=== PATIENT | female | born 1960 | race Caucasian/White ===

== ENCOUNTER 2020-07-16 00:04 | Inpatient (IN) | payer MEDICAID, SELFPAY ==
[~2020-07-16] VITALS: Ht 157.5 cm; Wt 77.1 kg
[2020-07-16 00:27] VITALS: BP_SYST 121
--- NOTE | 2020-07-16 00:50 | NUR ---
Patient to ER bed 2 to gown for evaluation. Side rails up. Report given to SONJA Byers
--- NOTE | 2020-07-16 00:55 | NUR ---
Patient brought in by friends in wheelchair. Patient reports that she has fallen a couple times this week, complaining of lower back pain. Patient reports she has chronic back pain and nerve pain and sees a pain management MD that prescribes #110 of [employer]. Patient reports she was just discharged from [facility] ED for same issue. Also reports that she has low sodium and was only given "half a bag of fluid." Pain 9/10, lower back. No other complaints/injuries per patient or as noted. Will continue to monitor.
[2020-07-16 01:19] LABS: BILIRUBIN,URINE NEGATIVE (NEGATIVE); CLARITY/URINE CLEAR (CLEAR); COLOR,URINE YELLOW (YELLOW); GLUCOSE,URINE NEGATIVE (NEGATIVE); KETONES,URINE NEGATIVE (NEGATIVE); LEUKOCYTE ESTERASE ,URINE NEGATIVE (NEGATIVE); NITRITE, URINE NEGATIVE (NEGATIVE); PROTEIN URINE NEGATIVE (NEGATIVE); UROBILINOGEN,URINE 0.2 (0.2-1.0)
[2020-07-16 01:25] LABS: BLOOD, URINE TRACE (NEGATIVE)
[2020-07-16 01:26] LABS: WBC,URINE 0-3 /HPF (0-3)
[2020-07-16 01:27] LABS: BACTERIA,URINE FEW /HPF (None Seen)
[2020-07-16 01:29] LABS: BARBITURATE, URINE NEGATIVE (NEG <=200); BENZODIAZEPINE, URINE NEGATIVE (NEG <=150); CANNABINOID, URINE NEGATIVE (NEG <=50); COCAINE, URINE NEGATIVE (NEG <=150); METHAMPHETAMINES SCREEN,URINE NEGATIVE (NEG <=500); OPIATE, URINE POSITIVE (NEG <=100); PHENCYCLIDINE SCREEN,URINE NEGATIVE (NEG <=25); UR TRICYCLIC ANTIDEPRESSANTS NEGATIVE (NEG <=300); URINE AMPHETAMINE NEGATIVE (NEG <=500); URINE METHADONE NEGATIVE (NEG <=200); URINE OXYCODONE SCREEN NEGATIVE (NEG <=100); URINE PROPOXYPHENE SCREEN NEGATIVE (NEG <=300)
[2020-07-16 01:33] LABS: BASOPHILS % (AUTO) 0.2 % (0.0-2.0); EOSINOPHILS % (AUTO) 0.4 % (0.0-4.0); HEMATOCRIT 34.2 % (36-48); LYMPHOCYTES # (AUTO) 1.5 K/uL (1.0-5.5); LYMPHOCYTES % (AUTO) 30.6 % (20.5-51.5); MEAN CORPUSCULAR HEMOGLOBIN 33 pg (27-31); MEAN CORPUSCULAR HGB CONC 35 % (32-36); MEAN CORPUSCULAR VOLUME 93 fL (79.0-98.0); MONOCYTES # (AUTO) 0.3 K/uL (0.0-1.0); MONOCYTES % (AUTO) 6.9 % (1.7-9.3); NEUTROPHILS # (AUTO) 2.9 K/uL (1.8-7.7); NEUTROPHILS % (AUTO) 61.9 % (40.0-70.0); PLATELET COUNT (AUTO) 276 K/uL (130-430); RED CELL DISTRIBUTION WIDTH 11.8 % (9.0-15.0); WHITE BLOOD COUNT (AUTO) 4.8 K/uL (4.8-10.8)
--- NOTE | 2020-07-16 01:38 | NUR ---
ER Dr. Perla at bedside examining patient.
[2020-07-16 01:42] LABS: CALCIUM 8.8 mg/dL (8.4-11.0); CREATININE 0.59 mg/dL (0.55-1.30)
[2020-07-16] MEDS ORDERED: KETOROLAC TROMETHAMINE 30 MG VIAL IM ONE (01:45)
[2020-07-16 01:47] LABS: ALBUMIN 3.8 g/dL (3.4-4.8); TOTAL BILIRUBIN 0.4 mg/dL (0.0-1.0)
[2020-07-16] MEDS ORDERED: NACL 0.9% 1,000 ML IV ONE (02:00)
--- NOTE | 2020-07-16 03:32 | NUR ---
pt was able to ambulate to restroom and back to bed with steady gait but with assistance. Pt resting comfortably in bed. No acute distress, will continue to monitor.
--- NOTE | 2020-07-16 03:45 | NUR ---
Repeat serum sodium drawn. Pt tolerated well. Specimen sent to lab.
[2020-07-16] MEDS ORDERED: OMEP20CA15 PO (04:43)
[2020-07-16] MEDS ORDERED: CARV3.1246 PO (04:43)
[2020-07-16] MEDS ORDERED: AMLO2.5T2 PO (04:43)
[2020-07-16] MEDS ORDERED: NEU100 PO (04:43)
--- NOTE | 2020-07-16 04:45 | NUR ---
Patient unable to remember medication list. Per patient, nephew will bring medication list in the morning.
--- NOTE | 2020-07-16 05:54 | NUR ---
patient resting comfortably in bed. No acute distress, will continue to monitor.
[2020-07-16] MEDS ORDERED: KETOROLAC TROMETHAMINE 30 MG VIAL IVP ONE (07:00)
--- NOTE | 2020-07-16 07:24 | NUR ---
Report given to SONJA Daniel. All care endorsed.
--- NOTE | 2020-07-16 07:33 | NUR ---
Admit orders received from Dr. Vines. Pt will go to Med-surg. Called for bed, charge nurse is in report and will call us back.
--- NOTE | 2020-07-16 08:27 | NUR ---
Belongings list completed, pt unable to remember medications, nephew will bring the list this afternoon.
--- NOTE | 2020-07-16 08:30 | NUR ---
Patient will be admitted to care of Dr. Vines. Admitted to med-surg unit. Will go to room 108A. Belongings list completed. Complete and up to date summary report printed. SBAR report to be given at bedside with opportunity for questions.
--- NOTE | 2020-07-16 08:46 | NUR ---
CONSULTATION PAGED REASON FOR CONSULTATION:HYPONATREMIA WAS CONSULT CALLED?Y PERSON WHO WAS NOTIFIED:[facility] CONSULTING PHYSICIAN:MARCO ANTONIO PRUITT [employer]ER SPECIALTY:NEPHROLOGY [employer] PHONE NUMBER:[phone] REQUESTING PHYSICIAN:DARIO FERNANDES
--- NOTE | 2020-07-16 08:50 | NUR ---
ADMISSION NOTE Received patient from ER via gurney. Patient admitted with diagnosis of Hyponatremia. Patient is awake, alert, oriented X 4. Patient oriented to hospital room, call light, toileting, pain management and safety-teach back done. Patient informed thatStaci will be her nurse and that their room number is 108-A. Personal belongings checked and Belongings List documented. Call light within reach.
[2020-07-16 09:00] VITALS: BP_SYST 124
--- NOTE | 2020-07-16 09:15 | NUR ---
Hand In: Endorsed to primary care nurse Staci,patient in room 108-A in stable condition.
--- NOTE | 2020-07-16 10:02 | NUR ---
Opening Notes Patient is awake, alert and oriented x4. No resp distress noted. Breathing is even and unlabored at this time. Patient is c/o gen body pain, 06/22. Per patient, "My pain is due to my neuropathy, usually in my lower legs." IV site on right AC, 20 gauge intact at this time. NS @ 100 cc/hr, infusing well at this time. Patient is ambulatory and is able to self turn in bed. Patient was oriented to the room. Nurse educated pt on proper use of the call light and to ask for help when needed. Pt was successful in return demonstration of call light. All needs met at this time. Safety and fall precautions in place. Bed in lowest position, locked. Will continue to monitor.
[2020-07-16] MEDS: NACL 0.9% 1,000 ML IV SCH ×2 (10:19→19:30)
[2020-07-16] MEDS: MORPHINE 2 MG/ML INJ. SYRINGE IVP PRN ×3 (10:41→20:50)
--- NOTE | 2020-07-16 10:45 | NUR ---
Morphine 1 mg IVP Patient is c/o 9/10 pain level, on lower legs and gen body. Administered Morphine 1 mg IVP, tolerated well. Will continue to monitor.
[2020-07-16 12:00] VITALS: BP_SYST 125
--- NOTE | 2020-07-16 12:20 | NUR ---
Notes Patient is laying in bed, resting at this time and talking on her phone. No resp distress noted. Breathing is even and unlabored. Denies any pain at this time. Will continue to monitor.
--- NOTE | 2020-07-16 14:25 | NUR ---
Notes Patient is sleeping in bed at this time. No resp distress noted. Breathing is even and unlabored. No pain at this time. Will continue to monitor.
--- NOTE | 2020-07-16 15:40 | NUR ---
Morphine 2 mg IVP Patient is c/o gen body pain, requesting pain medication. Administered Morphine 2 mg IVP, tolerated well. Will continue to monitor.
[2020-07-16 16:00] VITALS: BP_SYST 128
[2020-07-16] MEDS ORDERED: NALOXONE HCL 0.4 MG/ML AMP (NARCAN) IVP PRN ×2 (16:30→17:15)
[2020-07-16] MEDS ORDERED: HYDROcodone/ACETAMIN 10-325 MG TAB PO PRN ×2 (16:30→17:15)
--- NOTE | 2020-07-16 16:30 | NUR ---
IV SITE OUT IV site on right AC, 20 gauge came out, swelling noted on lower forearm, pt educated to elevate arm. Attempted to restart IV access x3, unsuccessful. Obtained new orders from Dr. Martínez for midline placement. Will continue to monitor.
--- NOTE | 2020-07-16 18:55 | NUR ---
Closing Notes/WAITING FOR MIDLINE PLACEMENT Patient is awake, alert and oriented x4. No resp distress noted. Breathing is even and unlabored. Pt denies any pain at this time. IV SITE not available at this time. Some swelling noted on right upper arm. Pt was educated to elevate the extremity. Pt is ambulatory, steady gait. Patient denies any NVD, cough or abnormal bleeding. No needs at this time. Safety and fall precautions in place. Bed in lowest position, locked. Will continue to monitor.
[2020-07-16 19:00] VITALS: BP_SYST 127
--- NOTE | 2020-07-16 19:15 | NUR ---
change of shift.pt.presents quiescent affect;calm,resting.pt.had submitted to the placement of a mid-line:07/16/20. picc line nsg had placed the mid-line;location;lt.bicept.intact;patent.i have re-connected the iv fluids.pt.presents general status stable.respiratory status stable;unlabored@room air.pt.capable to reposition self/ambulate.i am to f/u and collect a urine sample;na+,omol,uric acrid.call light/telephone w/in access of the pt.
[2020-07-16 20:00] VITALS: BP_SYST 127
--- NOTE | 2020-07-16 20:00 | NUR ---
pt.assessed.v/s assessed values w/in normal limits.no c/o pain,nausea.mid-line intact;patent iv fluids infusing.i have apprised the pt.that snacks/beverages are available w/in the shift.pt.had requested coffee/jellos.i have provided the food items.i have re-iterated to the pt.that i am to collect a urine sample.i have presented the hat;explanation provided re;hat.placed w/in the toilet.general status stable.respiratory status stable;unlabored.call light/telephone w/in access of the pt.
[2020-07-16] MEDS: FAMOTIDINE 20 MG TABLET PO SCH (20:47)
[2020-07-16] MEDS: SODIUM CHLORIDE 500 MG TABLET PO SCH (20:47)
--- NOTE | 2020-07-16 21:00 | NUR ---
2100pmedications administered.pt.capable to ingest the po medications w/out difficulty.pt.had requested medication; pain.i have administered morphine;2mg ivp.to assess the efficacy of the pain medication per pain mgx protocol.
--- NOTE | 2020-07-16 22:00 | NUR ---
pt.assessed.pt.presents quiescent affect;calm,restimg.no c/o pain,nausea.no requests posited@this hour.mid-line intact;patent iv fluids infusing.general status stable.respiratory status stable;unlabored.pt.capable to repiosition self.call light/telephone w/in reach of the pt.
--- NOTE | 2020-07-16 22:30 | NUR ---
i have collected the urine sample;na+.osmo,uric acid.taken to the lab.
[2020-07-17] VITALS: BP_SYST 125
--- NOTE | 2020-07-17 | NUR ---
pt.assessed.v/s assessed values w/in normal limits.no c/o pain,nausea.pt.had requested snacks/juice.i have provided the food items.mid line intact;patent iv fluids infusing.pt.capable to reposition self.general status stable.respiratory status stable.unlabored.call light/telephone w/in access of the pt.
[2020-07-17] MEDS: MORPHINE 2 MG/ML INJ. SYRINGE IVP PRN ×3 (01:30→10:14)
--- NOTE | 2020-07-17 01:30 | NUR ---
pt.assessed.pt.requested medication;pain.i have administered morphine:2mg ivp.to assess the efficacy of the pain medication per pain mgx protocol.no additional requests posited@this.
--- NOTE | 2020-07-17 02:00 | NUR ---
pt.assessed.pt.presents quiescent affect;calm,somnolent.per flacc pain mgx pt.absent facial grimaces/body posturing mid-line intact;patent iv fluids infusing.pt.capable to reposition self.call light.telephone w/in access of the pt.
--- NOTE | 2020-07-17 04:00 | NUR ---
pt.assessed.pt.present quiescent affect;calm,somnolent.per flacc pain mgx pt.absent facial grimaces/body posturing.mid-line intact;patent iv fluids infusing.general status stable.respiratory status stable;unlabored.pt.capable to reposition self.call light/ telephone placed w/in reach of the pt.
[2020-07-17] MEDS: NACL 0.9% 1,000 ML IV SCH (05:21)
--- NOTE | 2020-07-17 06:30 | NUR ---
pt.assessed.pt.had requested medication;pain.i administered morphine;2mg ivp.to assess the efficacy of the pain medication per pain mgx protocol.mid-line intact;patent iv fluids infusing.pt.had requested coffee i provided the coffee.pt.capable to reposition self/ambulate. general status stable;respiratory status stable;unlabored.call light/telephone placed w/in access of the pt.
--- NOTE | 2020-07-17 07:15 | NUR ---
opening note received bedside sbar from night rn, patient in bed, respirations even, non labored, bed in low and locked position, call light within reach, ivf's running as directed
[2020-07-17 08:00] VITALS: BP_SYST 152
--- NOTE | 2020-07-17 08:00 | NUR ---
nurse note obtained vs, patient complaining of pain, repositioned patient, bed in low and locked position, call light within reach
[2020-07-17 08:23] LABS: RED CELL DISTRIBUTION WIDTH 12.1 % (9.0-15.0)
[2020-07-17 08:24] LABS: BASOPHILS % (AUTO) 0.7 % (0.0-2.0); HEMATOCRIT 34.8 % (36-48); HEMOGLOBIN 11.8 g/dL (12.0-16.0); LYMPHOCYTES # (AUTO) 1.6 K/uL (1.0-5.5); MEAN CORPUSCULAR HEMOGLOBIN 32 pg (27-31); MEAN CORPUSCULAR HGB CONC 34 % (32-36); MEAN CORPUSCULAR VOLUME 95 fL (79.0-98.0); MONOCYTES # (AUTO) 0.4 K/uL (0.0-1.0); MONOCYTES % (AUTO) 10.4 % (1.7-9.3); NEUTROPHILS # (AUTO) 1.8 K/uL (1.8-7.7); NEUTROPHILS % (AUTO) 46.9 % (40.0-70.0); PLATELET COUNT (AUTO) 211 K/uL (130-430); RED BLOOD CELL COUNT(AUTO) 3.65 MIL/uL (4.2-6.2); WHITE BLOOD COUNT (AUTO) 3.9 K/uL (4.8-10.8)
[2020-07-17] MEDS ORDERED: CARVEDILOL 3.125 MG TABLET (COREG) PO SCH (09:00)
[2020-07-17] MEDS ORDERED: GABAPENTIN 100 MG CAPSULE PO SCH (09:00)
[2020-07-17] MEDS ORDERED: PANTOPRAZOLE SODIUM 40 MG TAB PO SCH (09:00)
[2020-07-17] MEDS ORDERED: amLODIPine BESYLATE 5 MG TABLET PO SCH (09:00)
[2020-07-17 09:40] LABS: CALCIUM 9.1 mg/dL (8.4-11.0); CREATININE 0.47 mg/dL (0.55-1.30); POTASSIUM 4.2 mmol/L (3.5-5.1)
[2020-07-17] MEDS: SODIUM CHLORIDE 500 MG TABLET PO SCH (09:40)
[2020-07-17] MEDS: FAMOTIDINE 20 MG TABLET PO SCH (09:40)
[2020-07-17 09:41] LABS: ALBUMIN 3.9 g/dL (3.4-4.8); PHOSPHORUS 3.1 mg/dL (2.7-4.5); THYROID STIMULATING HORMONE 3.6 uIu/mL (0.36-3.74); TOTAL BILIRUBIN 0.3 mg/dL (0.0-1.0); URIC ACID 2.3 mg/dL (2.4-7.0)
--- NOTE | 2020-07-17 10:30 | NUR ---
nurse note patient in bed, respirations even non labored, bed in low and locked position, call light within moe ch
[2020-07-17 11:23] VITALS: BP_SYST 122
--- NOTE | 2020-07-17 12:30 | NUR ---
nurse note patient in bed, requesting to be discharged by Dr. Vines, spoke with Dr. Vines he will be in shortly, patient informed
--- NOTE | 2020-07-17 14:00 | NUR ---
nurse note patient complaining of pain, repositioned patient, will provide medications
--- NOTE | 2020-07-17 15:00 | NUR ---
HIGH ALERT NOTE: DR. LUND ON THE FLOOR, MORPHINE 15MG PO ONCE, ORDER ENTERED.
--- NOTE | 2020-07-17 15:02 | NUR ---
SS NOTES/DCP: SHACTOR was referred by CM to see patient for DCP. Demographic information confirmed. SHACTOR met with patient at bedside. Pt is a 60 y/o female who came in via ED. Pt states she is independent with her ADL's and uses a walker/cane to go around the community. Pt lives on the second floor with 15 steps to get to the front door. Pt states she is connected to a Physical therapy clinic in [facility]. Pt is also connected with [facility] for her HIV treatments. Pt states her only source of income is her SSI. Pt states she has a history of PTSD and Bipolar disorder and is seeing a therapist at [facility]. Pt states she has a history of ETOH and heroine use; her last use was 2 years ago. Pt also has a history of substance treatment; [facility] and [facility]. Pt states she receives [facility], "a couple of hours a day". Pt appears to be well-connected to community resources; [address] [employer], HIV clinic, mental health, case mgmt, etc. If discharge to SNF, pt prefers [facility], and no preference on [facility] agencies. Pt is alert and oriented x4. Pt's behavior is calm and cooperative. Pt mood is within normal limits and affect is congruent. Pt denies current S/I , H/I and A/V hallucinations and substance use. Pt is coping fair. Pt has good insight and judgement. Pt identifies "the higher power" and her family as her support systems. No further SS needs identified but will remain available.
[2020-07-17 15:24] VITALS: BP_SYST 119
[2020-07-17] MEDS ORDERED: MORPHINE SULFATE 15 MG TABLET.ER PO ONE (15:30)
--- NOTE | 2020-07-17 16:00 | NUR ---
nurse note removed midline, catheter intact, no bleeding, patient tolerated well, no signs of distress noted
--- NOTE | 2020-07-17 16:15 | NUR ---
D/C Patient Patient given medication reconciliation form and D/C instructions. Exit Care provided. Patient verbalized understanding. MD discussed with patient the results and treatment provided. Ambulatory with steady gait for discharge to home. Patient in stable condition, ID band removed. Patient educated on pain management. All belongings sent with patient. Patient taken to parking lot via wheel chair to awaiting car
[2020-07-17] MEDS ORDERED: MORPHINE SULFATE 15 MG TABLET.ER PO SCH (21:00)
== END 2020-07-17 16:20 | disposition home or self-care (01) | DRG 426 ==
LOC: SED 00:04 → SMU 07:23
PROVIDERS: ADMIT Internal Medicine; ATTEND Internal Medicine
PROC: 05HY33Z Insertion of Infusion Device into Upper Vein, Percutaneous Approach (ICD-10-PCS; principal; 2020-07-16)
PROC: B54NZZA Ultrasonography of Left Upper Extremity Veins, Guidance (ICD-10-PCS; 2020-07-16)
DX: E87.1 Hypo-osmolality and hyponatremia (principal); K29.70 Gastritis, unspecified, without bleeding; G62.9 Polyneuropathy, unspecified; G89.29 Other chronic pain; M54.5 Low back pain; I10 Essential (primary) hypertension; M54.9 Dorsalgia, unspecified; Z20.828 Contact with and (suspected) exposure to other viral communicable diseases; R82.71 Bacteriuria; Z88.8 Allergy status to other drugs, medicaments and biological substances; Z88.0 Allergy status to penicillin; Z79.899 Other long term (current) drug therapy; R65.10 Systemic inflammatory response syndrome (SIRS) of non-infectious origin without acute organ dysfunction
CPT/HCPCS: 36415; 72100-TC; 80053; 80307; 81000-TC; 82533; 83735-TC; 83930-TC; 83935-TC; 84100-TC; 84295-TC; 84302-TC; 84443-TC; 84550-TC; 85025; 96361; 96372; 96375; 99285; C1751; J1885; J2270; J7030

== ENCOUNTER 2020-09-08 22:27 | Emergency (ER) | payer MEDICAID, SELFPAY ==
[~2020-09-08] VITALS: Ht 157.5 cm; Wt 77.1 kg
[~2020-09-08 22:27] MED LIST: AMLO2.5T2 PO; CARV3.1246 PO; NEU100 PO; OMEP20CA15 PO
[2020-09-08 22:32] VITALS: BP_SYST 131
[2020-09-09] MEDS: KETOROLAC TROMETHAMINE 60 MG/2 ML VIAL IM ONE (00:49)
[2020-09-09] MEDS: KETOROLAC TROMETHAMINE 30 MG VIAL IM ONE (01:06)
[2020-09-09 01:13] LABS: BASOPHILS % (AUTO) 0.6 % (0.0-2.0); EOSINOPHILS # (AUTO) 0.2 K/uL (0.0-0.4); EOSINOPHILS % (AUTO) 4.6 % (0.0-4.0); HEMOGLOBIN 9.9 g/dL (12.0-16.0); LYMPHOCYTES # (AUTO) 1.8 K/uL (1.0-5.5); LYMPHOCYTES % (AUTO) 34.7 % (20.5-51.5); MEAN CORPUSCULAR HEMOGLOBIN 32 pg (27-31); MEAN CORPUSCULAR HGB CONC 34 % (32-36); MEAN CORPUSCULAR VOLUME 95 fL (79.0-98.0); MONOCYTES # (AUTO) 0.5 K/uL (0.0-1.0); MONOCYTES % (AUTO) 8.8 % (1.7-9.3); NEUTROPHILS # (AUTO) 2.7 K/uL (1.8-7.7); NEUTROPHILS % (AUTO) 51.3 % (40.0-70.0); PLATELET COUNT (AUTO) 240 K/uL (130-430); RED BLOOD CELL COUNT(AUTO) 3.06 MIL/uL (4.2-6.2); RED CELL DISTRIBUTION WIDTH 12.4 % (9.0-15.0); WHITE BLOOD COUNT (AUTO) 5.3 K/uL (4.8-10.8)
[2020-09-09 01:29] LABS: CREATININE 0.52 mg/dL (0.55-1.30); POTASSIUM 3.5 mmol/L (3.5-5.1)
[2020-09-09 01:35] LABS: ALBUMIN 3.8 g/dL (3.4-4.8); TOTAL BILIRUBIN 0.4 mg/dL (0.0-1.0)
[2020-09-09 02:17] VITALS: BP_SYST 120
== END 2020-09-09 02:17 | disposition home or self-care (01) ==
LOC: SED 22:27
DX: M79.671 Pain in right foot (principal); M79.672 Pain in left foot; E78.1 Pure hyperglyceridemia; Z79.899 Other long term (current) drug therapy; Z88.0 Allergy status to penicillin
CPT/HCPCS: 36415; 80053; 85025; 96372; 99283